=== PATIENT | male | born 1935 | race Caucasian/White ===

== ENCOUNTER 2017-01-18 08:46 | Day surgery (SDC) | payer OTHER ==
[~2017-01-18] VITALS: Ht 172.7 cm; Wt 85.3 kg
[2017-01-18 09:34] VITALS: BP 86/103
[2017-01-18 14:36] VITALS: BP 146/92
== END 2017-01-18 14:00 | disposition home or self-care (01) ==
LOC: DS 08:46
PROVIDERS: Ophthalmology
PROC: 08RJ3JZ Replacement of Right Lens with Synthetic Substitute, Percutaneous Approach (ICD-10-PCS; principal; 2017-01-18 10:30)
DX: H25.11 Age-related nuclear cataract, right eye (principal); E10.9 Type 1 diabetes mellitus without complications; I10 Essential (primary) hypertension; Z85.46 Personal history of malignant neoplasm of prostate
CPT/HCPCS: 82962; C1780; J1120; J2001; J2250; J2405; J2704; J3010; J3490